=== PATIENT | female | born 1975 | race Caucasian/White ===

== ENCOUNTER 2017-06-12 02:24 | Emergency (ER) | payer MEDICAID, OTHER ==
[~2017-06-12] VITALS: Ht 170.2 cm; Wt 105.4 kg
[~2017-06-12 02:24] MED LIST: 1-ME1LIQ PO; COZA100T PO; HYDR12.56 PO; VENL75TA91 PO; VIIB40TA PO
[2017-06-12 02:34] VITALS: BP 162/78; PULSE 4; PULSE 94; RESP 18; TEMP 98.2; O2SAT 100
[2017-06-12] MEDS ORDERED: ASPIRIN 325 MG TAB PO ONE (02:45)
[2017-06-12] MEDS ORDERED: SODIUM CHLORID 0.9% 500 ML INJ 500 ML IV ONE (02:45)
[2017-06-12] MEDS ORDERED: SODIUM CHLORIDE 0.9% FLUSH 10 ML FLUSH IVF PRN (02:45)
[2017-06-12] MEDS ORDERED: LORA1TAB12 PO (02:47)
[2017-06-12] MEDS ORDERED: BENA5TAB PO (02:47)
[2017-06-12] MEDS ORDERED: EFFE150C PO (02:47)
[2017-06-12] MEDS ORDERED: HYDR50TA3 PO (02:47)
[2017-06-12] MEDS ORDERED: BUPR100CR PO (02:47)
[2017-06-12] MEDS ORDERED: ADDE30TA PO (02:48)
[2017-06-12 02:58] LABS: AUTOMATED NEUTROPHIL # 4.7 TH/MM3 (1.8-7.7); BASOPHIL # 0.1 TH/MM3 (0-0.2); BASOPHIL % 0.6 % (0.0-2.0); EOSINOPHIL # 0.2 TH/MM3 (0-0.4); EOSINOPHIL % 2.3 % (0.0-4.0); HEMATOCRIT 41.6 % (35.0-46.0); HEMO FLAGS DIFF FINAL; LYMPH % 33.6 % (9.0-44.0); LYMPHOCYTE # 2.9 TH/MM3 (1.0-4.8); MEAN CELL VOLUME 80.7 FL (80.0-100.0); MEAN CORPUSCULAR HEMOGLOBIN 26.4 PG (27.0-34.0); MEAN CORPUSCULAR HGB CONC 32.7 % (32.0-36.0); MONO % 10.8 % (0.0-8.0); NEUT % 52.7 % (16.0-70.0); PLATELET COUNT 370 TH/MM3 (150-450); RED BLOOD COUNT 5.15 MIL/MM3 (4.00-5.30); RED CELL DISTRIBUTION WIDTH 12.9 % (11.6-17.2); WHITE BLOOD COUNT 8.8 TH/MM3 (4.0-11.0)
[2017-06-12] MEDS ORDERED: KETOROLAC TROMETHAMINE 60 MG/2 ML (IM) VIAL IVP ONE (03:00)
--- NOTE | 2017-06-12 03:02 | PD ---
HPI Chief Complaint: Respiratory Symptoms Time Seen by Provider: 02:30 Travel History International Travel<30 days: No Contact w/Intl Traveler<30days: No Traveled to known affect area: No History of Present Illness HPI The patient is a 42-year-old female with no known history of heart disease who complains of a sharp, pleuritic chest pain, 10 over 10 that feels like a bowl constrictor around her chest when she takes a deep breath. This is been going on for an hour, it started around 1:15 this morning. The patient took a 325 mg aspirin and Motrin. She initially stated she was short of breath but she is not short of breath. She does have a history of asthma but this does not feel like her usual asthma attack. She denies any wheezing. She is moving air quite well and her oximetry is 100% on room air. She denies any fever or hemoptysis. PFSH Past Medical History ADD: Yes Asthma: Yes Anxiety: Yes Depression: Yes Diminished Hearing: No Hypertension: Yes Immunizations Current: No ?: Not : 3 Para: 3 Miscarriage: 0 : 0 Past Surgical History Other Surgery: Yes (BREAST) Social History Alcohol Use: Yes (OCC) Tobacco Use: No Substance Use: No Allergies-Medications (Allergen,Severity, Reaction): Coded Allergies: Codeine (Verified Allergy, Mild, HIVES, 06/12/17) Reported Meds & Prescriptions Reported Meds & Active Scripts Active K-Tab (Potassium Chloride) 10 Meq Tab 10 Meq PO DAILY Reported Adderall (Amphetamine-Dextroamphetamine) 30 Mg Tab 30 Mg PO BID Avoid late evening doses. Space doses at least 4 to 6 hours if more than once/day dosing. Lorazepam 1 Mg Tab 1 Mg PO DAILY PRN Hydrochlorothiazide 50 Mg Tab 50 Mg PO DAILY Benazepril (Benazepril HCl) 5 Mg Tab 5 Mg PO DAILY Wellbutrin SR 12 HR (Bupropion HCl) 100 Mg Tab 100 Mg PO Q12HR Effexor XR 24 HR (Venlafaxine HCl) 150 Mg Cap 150 Mg PO DAILY Review of Systems Except as stated in HPI: all other systems reviewed are Neg Physical Exam Narrative GENERAL: The patient is alert, oriented 3 in no respiratory distress. Her vital signs show pulse rate of 94 with 100% oximetry and respirations of only 18. The blood pressure is 162/78. The temperature is 98.2. SKIN: Focused skin assessment warm/dry. The patient has a erythematous macular rash across her anterior chest and shoulders which she states she gets when she gets anxious. HEAD: Atraumatic. Normocephalic. EYES: Pupils equal and round. No scleral icterus. No injection or drainage. ENT: No nasal bleeding or discharge. Mucous membranes pink and moist. NECK: Trachea midline. No JVD. CARDIOVASCULAR: Regular rate and rhythm. No murmur appreciated. RESPIRATORY: No accessory muscle use. Breath sounds equal bilaterally. There are a few rubs heard and no wheezes are heard. The lungs are otherwise clear. I cannot reproduce the patient's chest pain by pressing on the chest wall. GASTROINTESTINAL: Abdomen soft, non-tender, nondistended. Hepatic and splenic margins not palpable. No guarding or rebound is present. MUSCULOSKELETAL: No obvious deformities. No clubbing. No cyanosis. No edema. NEUROLOGICAL: Awake and alert. No obvious cranial nerve deficits. Motor grossly within normal limits. Normal speech. PSYCHIATRIC: The patient appears slightly anxious; insight and judgment normal. Data Data Last Documented VS Vital Signs Date Time Temp Pulse Resp B/P Pulse Ox O2 Delivery O2 Flow Rate FiO2 06/12/17 03:19 85 16 111/60 97 Room Air 06/12/17 02:34 98.2 Orders Electrocardiogram (06/12/17 02:42) Ckmb (Isoenzyme) Profile (06/12/17 02:42) Complete Blood Count With Diff (06/12/17 02:42) Comprehensive Metabolic Panel (06/12/17 02:42) Magnesium (Mg) (06/12/17 02:42) Troponin I (06/12/17 02:42) Ecg Monitoring (06/12/17 02:42) Bilateral Bp Monitoring (06/12/17 02:42) Iv Access Insert/Monitor (06/12/17 02:42) Oximetry (06/12/17 02:42) Oxygen Administration (06/12/17 02:42) Sodium Chloride 0.9% Flush (Ns Flush) (06/12/17 02:45) Nitroglycerin Sl (Nitrostat Sl) (06/12/17 02:45) Sodium Chlorid 0.9% 500 Ml Inj (Ns 500 M (06/12/17 02:45) Chest, Pa & Lat (06/12/17 02:42) Ketorolac Inj (Toradol Inj) (06/12/17 03:00) Potassium Chloride (Kcl) (06/12/17 03:30) CKMB (06/12/17 02:50) CKMB% (06/12/17 02:50) Labs Laboratory Tests Test 06/12/17 02:50 White Blood Count 8.8 TH/MM3 Red Blood Count 5.15 MIL/MM3 Hemoglobin 13.6 GM/DL Hematocrit 41.6 % Mean Corpuscular Volume 80.7 FL Mean Corpuscular Hemoglobin 26.4 PG Mean Corpuscular Hemoglobin 32.7 % Concent Red Cell Distribution Width 12.9 % Platelet Count 370 TH/MM3 Mean Platelet Volume 9.0 FL Neutrophils (%) (Auto) 52.7 % Lymphocytes (%) (Auto) 33.6 % Monocytes (%) (Auto) 10.8 % Eosinophils (%) (Auto) 2.3 % Basophils (%) (Auto) 0.6 % Neutrophils # (Auto) 4.7 TH/MM3 Lymphocytes # (Auto) 2.9 TH/MM3 Monocytes # (Auto) 0.9 TH/MM3 Eosinophils # (Auto) 0.2 TH/MM3 Basophils # (Auto) 0.1 TH/MM3 CBC Comment DIFF FINAL Differential Comment Sodium Level 138 MEQ/L Potassium Level 2.8 MEQ/L Chloride Level 96 MEQ/L Carbon Dioxide Level 36.0 MEQ/L Anion Gap 6 MEQ/L Blood Urea Nitrogen 15 MG/DL Creatinine 0.95 MG/DL Estimat Glomerular Filtration 64 ML/MIN Rate Random Glucose 80 MG/DL Calcium Level 9.2 MG/DL Magnesium Level 2.2 MG/DL Total Bilirubin 0.1 MG/DL Aspartate Amino Transf 18 U/L (AST/SGOT) Alanine Aminotransferase 29 U/L (ALT/SGPT) Alkaline Phosphatase 75 U/L Total Creatine Kinase 124 U/L Troponin I LESS THAN 0.02 NG/ML Total Protein 7.7 GM/DL Albumin 3.4 GM/DL [facility] Medical Decision Making Medical Screen Exam Complete: Yes Emergency Medical Condition: Yes Medical Record Reviewed: Yes Interpretation(s) EKG shows sinus rhythm with rate of 91 with possible left atrial enlargement but is otherwise normal. The chest x-ray shows no acute disease. The CBC is normal. The complete metabolic profile shows a potassium of 2.8, bicarbonate of 36 and GFR of 64 but is otherwise normal. The cardiac enzymes are normal. Differential Diagnosis Acute coronary syndromehighly unlikely, pleurisy, chest wall pain, pneumonia, pneumothoraxunlikely, pulmonary embolushighly unlikely, esophageal pain Narrative Course The patient appears to have pleurisy. It is now 0330 and the patient's pain is a 2/10 and she feels much better. Plan: The patient will be given Motrin 600 mg 3 times daily for approximately 5 days. She should follow up next week with her primary care physician. Diagnosis Primary Impression: Pleurisy Additional Instructions: As we discussed, take the potassium tablet daily and follow-up with your primary care physician next week. Limit the Motrin to about 5 days to avoid kidney damage. Med/Other Pt SpecificInfo: Prescription(s) given Scripts Ibuprofen 600 Mg [id number] Mg PO TID #33 TAB Ref 0 Prov:Favian Silva MD 06/12/17 Potassium Chloride ER (K-Tab)10 Meq Tab10 Meq PO DAILY #20 TAB Ref 0 Prov:Favian Silva MD 06/12/17 Disposition: 01 DISCHARGE HOME Condition: Stable Favian Silva MD Jun 12, 2017 03:02
[2017-06-12 03:09] VITALS: BP 125/73; PULSE 84; RESP 16; O2SAT 98
[2017-06-12] MEDS: NITROGLYCERIN 0.4 MG SL 25 TABS/BTL SL SCH ×3 (03:09→03:19)
[2017-06-12 03:13] LABS: ANION GAP 6 MEQ/L (5-15); BLOOD UREA NITROGEN 15 MG/DL (7-18); CHLORIDE 96 MEQ/L (98-107); MAGNESIUM 2.2 MG/DL (1.5-2.5); SODIUM (NA) 138 MEQ/L (136-145)
[2017-06-12 03:15] LABS: POTASSIUM 2.8 MEQ/L (3.5-5.1)
[2017-06-12 03:16] LABS: ALKALINE PHOSPHATASE 75 U/L (45-117); ALT (GPT) 29 U/L (10-53); AST (GOT) 18 U/L (15-37); CREATINE KINASE 124 U/L (26-192); GLOMERULAR FILTRATION RATE 64 ML/MIN (>89); TOTAL BILIRUBIN ADULT 0.1 MG/DL (0.2-1.0)
[2017-06-12] MEDS ORDERED: K-TA10TA PO (03:17)
[2017-06-12 03:19] VITALS: BP 111/60; PULSE 85; RESP 16; O2SAT 97
--- NOTE | 2017-06-12 03:22 | RADRPT ---
EXAM DATE/TIME: 06/12/2017 02:56 [facility] COMPARISON: CHEST PA & LAT, April 21, 2015, 12:55. INDICATIONS : Center and right of center chest pain. MEDICAL HISTORY : Hypertension. Scoliosis SURGICAL HISTORY : None. ENCOUNTER: Initial ACUITY: 1 day PAIN SCORE: 10/10 LOCATION: Right chest FINDINGS: PA and lateral views of the chest demonstrate the lungs to be symmetrically aerated without evidence of mass, infiltrate or effusion. The cardiomediastinal contours are unremarkable. Osseous structure s are intact. CONCLUSION: No acute disease. Niko Rojas MD on June 12, 2017 at 3:20 Board Certified Radiologist. This report was verified electronically.
[2017-06-12] MEDS ORDERED: POTASSIUM CHLORIDE 20 MEQ CONTROLLED RELEASE TAB PO ONE (03:30)
[2017-06-12 03:33] LABS: CKMB 2.5 NG/ML (0.5-3.6)
[2017-06-12] MEDS ORDERED: IBUP-232 PO (03:38)
[2017-06-12] MEDS ORDERED: PERC5TAB12 PO (03:42)
[2017-06-12 03:48] VITALS: BP 112/62
[2017-06-12 03:58] VITALS: RESP 16
--- NOTE | 2017-06-12 18:33 | EKG ---
Date Performed: 06/12/2017 Time Performed: 02:33:31 PTAGE: 42 years EKG: Sinus rhythm POSSIBLE LEFT ATRIAL ENLARGEMENT BORDERLINE ECG PREVIOUS TRACING : 04/21/2015 12.48 Compared to prior tracing no significant change DOCTOR: Marcos Lawson Interpretating Date/Time 06/12/2017 18:32:57
== END 2017-06-12 04:00 | disposition home or self-care (01) ==
LOC: PHED 02:24
DX: R09.1 Pleurisy (principal); R94.31 Abnormal electrocardiogram [ECG] [EKG]; I10 Essential (primary) hypertension; Z86.59 Personal history of other mental and behavioral disorders; Z87.09 Personal history of other diseases of the respiratory system
CPT/HCPCS: 71020; 80053; 82550; 82552; 83735; 84484; 85025; 93005; 96361; 96374; 99285; J1885; J7040